=== PATIENT | female | born 1945 | race Caucasian/White ===

== ENCOUNTER 2020-07-04 04:40 | Inpatient (IN) | payer OTHER ==
[~2020-07-04] VITALS: Ht 162.6 cm; Wt 76.7 kg
--- NOTE | 2020-07-04 07:20 | NUR ---
Arrived on [facility] floor from [facility] via W/C on 07/04/20 @ 06:15 accompanied by x2 staff and security. Transferred to Bed 526A, VS 153/86 66 20 98 oF 95% height 5'4" weight 161.5 pounds. 96 hour hold completed.
[2020-07-04] MEDS ORDERED: LIPITOR 20 MG T20 M1 PO (07:21)
[2020-07-04] MEDS ORDERED: ASPIRIN EC81 M1 PO (07:21)
[2020-07-04] MEDS ORDERED: BUSPIRONE HCL7.5 MG PO (07:22)
[2020-07-04] MEDS ORDERED: ESCITALOPRA5 MG/5 ML PO (07:23)
[2020-07-04] MEDS ORDERED: LISINOPRIL20 MG PO (07:25)
[2020-07-04] MEDS ORDERED: LORAZEPAM 1 MG T1 MG PO (07:27)
[2020-07-04] MEDS ORDERED: METOPROLOL TART75 MG PO (07:38)
[2020-07-04] MEDS ORDERED: MACROBID 100 M100 MG PO ×2 (07:39→07:40)
[2020-07-04 10:00] VITALS: BP 153/86
--- NOTE | 2020-07-04 10:39 | NUR ---
Arrived on [facility] floor from [facility] via W/C on 07/04/20 @ 0615 accompanied by x2 staff and security. Transferred to Bed 526A VS 153/86 66 20 98 o F 95% height 5'4" weight 161.5 pounds. 96 hour hold completed.
--- NOTE | 2020-07-04 13:55 | NUR ---
0700 ASSUMED CARE OF PATIENT, PATIENT SITTING IN DAYROOM TALKING WITH OTHER WELL. PATIENT CALM AND COOPERATIVE. VS APON ARRIVAL AT 0610 153/86, 66, 20, 98.0, 95%. WT 161.5 LBS. HT 5'4". PATIENT ATTENDED GROUP THIS AM. MEDICATIONS TAKEN WHOLE WITHOUT DIFFICULTY. A & O X1 TO SELF. CONFUSED AND UNAWARE OF WHERE SHE IS. PATIENT ADMITED TO [facility] WITH INCREASED CONFUSION, WANDERING OFF FROM HOME, AND DIFFICULTY WITH REALITY. PATIENT PARANOID, BELIEVES SHE WAS TAKEN FROM HOME AND PUT IN SOMETHING TO BE KILLED. PATIENT STATES "I WAS IN MY ROOM THEN DRAG OUT BACK DOOR OF MY HOUSE AND LOCKED INTO SOMETHING". PATIENT SAYS WHEN SHE GETS SCARED OF HER SHE GOES TO THE NEIGHBORS BUT KNOWS HER WILL NOT HURT HER BECAUSE THEY LOVE EACH OTHER. PATIENT STATES "I KNOW I AM FORGETFUL, DEPRESSED AT TIMES, ANXIOUS AND PARANOID BUT DOES NOT KNOW WHY. NO C/O PAIN, SKIN INTACT, LS CLEAR, BS ACTIVE. WALKS WITH STEADY GAIT WITHOUT ASSISTANCE. WILL CONTINUE TO OBSERVE
[2020-07-04 19:28] VITALS: BP 130/60
--- NOTE | 2020-07-05 02:40 | NUR ---
PT CARE ASSUMED WITH PT IN THE DOCTOR'S OFFICE.PT WENT TO THE ACTIVITY AND SAT WITH OTHERS .PT TAKES MEDICATION WHOLE WITH NO ISSUES.PT WANTS TO COME VISIT HER OR SHE GO SEE THE .STAFF EXPLAINED TO PT SHE WILL NOT BE ABLE TO GO SEE TONIGHT.PT WALKED UP AND NOW THE HALLWAY AND REMAIN IN THE ACTIVITY ROOM TILL THIS TIME .PT IS STEADY GAIT.WILL CONTINUE TO MONITOR
[2020-07-05 07:57] VITALS: BP 172/96
--- NOTE | 2020-07-05 08:48 | H ---
[facility] [place] [address] HISTORY AND PHYSICAL Name: GIULIA MONTIEL Room #: 526A-A ADM IN M.R.#: [id number] Admission: 07/04/20 Attend Phys: Mira Cardoso DO Discharge: Date of : 47 Report #: [id number] THIS REPORT FOR: cc: Jacob Kent MD, Richard K. MD Kerstein, Andrew H. DO ~ DOC #: [id number] MIRA Cardoso DO DATE OF SERVICE: 07/04/2020 INPATIENT PSYCHIATRIC EVALUATION ATTENDING PSYCHIATRIST: Mira Cardoso DO. DEOILING MACHINE OPERATOR: Mira Metz MD. REASON FOR ADMISSION: The patient sent over for worsening dementia, attempting to elope from her , worried that her was trying to kill her. SOURCE OF INFORMATION: Interview with the patient; telephone conversation with her daughter, Gisele; documentation from [email or web address] [place] system. HISTORY OF PRESENT ILLNESS: This is a 75-year-old female, to her . They have been around 40 years it sounds like. Apparently, the patient has had worsening paranoia. There is some concern of dementia diagnosis, but according to the daughter, has not been formally diagnosed at [facility]. She denied chest pain, shortness of breath, abdominal pain, vomiting or fever. Limited psychosocial history. She was a high school youth care worker, retiring around 10 years ago. PAST MEDICAL HISTORY: Includes atrial fibrillation, essential hypertension, hyperlipidemia, history of an NSTEMI, prediabetes, tachycardia. PSYCHIATRIC HISTORY: Anxiety and psychosis. PAST SURGICAL HISTORY: Includes cardiac catheterization, very mild 20% focal mid LCX, 30% ostial dominant RCA. She has also had hysterectomy. FAMILY HISTORY: Ovarian cancer in her mother, hypertension in her father. SOCIAL HISTORY: Nonsmoker, 1.0 standard drinks alcohol per week basis described as a glass of wine. REVIEW OF SYSTEMS: From the ER: CONSTITUTIONAL: Negative for diaphoresis and fever. HEENT: Negative for congestions. [facility] [address] [place] [address] HISTORY AND PHYSICAL Name: GIULIA MONTIEL Kendal Room #: 526A-A ADM IN ..#: [id number] Admission: 07/04/20 Attend Phys: Mira Cardoso DO Discharge: Date of : 47 Report #: [id number] EYES: Negative for visual disturbance. RESPIRATORY: Negative for cough. CARDIOVASCULAR: Negative for chest pain. GASTROINTESTINAL: Negative for abdominal pain, diarrhea, nausea, vomiting. GENITOURINARY: Negative for dysuria, hematuria. MUSCULOSKELETAL: Negative for back pain and neck pain. SKIN: Negative for color change, pallor, rash, and wound. NEUROLOGIC: Negative for seizure, syncope, speech difficulty and weakness. PSYCHIATRIC: Behavioral, positive for confusion. Negative for suicidal ideas. All other review of systems are negative. ADDITIONAL INFORMATION: Laboratories from the ER: White count 7.86, H and H 14.7 and 42, platelet count 283. Sodium was 139, potassium 3.9, chloride 104, bicarbonate 25, anion gap 10, calcium 9.2, glucose 122, total serum protein 8.0, albumin 4.7, alkaline phosphatase 95, ALT 23, AST 30, total bilirubin 1.0, blood urea nitrogen 14, creatinine 0.9, GFR female 61, troponin less than 0.01. Venous lactate 1.4. Alcohol less than 10, salicylate less than 1.1. Acetaminophen less than 10. UDS was positive for THC, benzodiazepines, otherwise not detected. CT of the head without contrast was reported by the radiologist to be negative for acute abnormality. Chest x-ray interpreted by ER physician shows normal heart size, normal lung volumes. No consolidation, effusion, pneumothorax. Normal soft tissues. She was seen by Dr. Gurpreet Potts at [facility] ER. There were 2 affidavits done by the patient. The first one done by Twan, which was the son-in-law. Apparently, the patient is constantly being "scared and anxious" for no reason, cannot remember the names and sometimes faces of close family members running away from home and her caregiver, tells strangers that her of 41 years is stranger and is keeping her prisoner in her home, lives atresidence that she has not lived in for 25-30 years. Cannot retain any new information known for years, constantly confused about her medication, forgets close family members and gets scared of them, refuses to use the restroom, paranoidabout taking medicines, refuses to take it. forgettingabout phone numbers, writes them down dozens of times and forgets she has them. Additional affidavit done by Katty Carreno, I believe this is her of 40 years, forgetting who she is, forgetting her of 41 years, forgetting her daughter of 40+ years, forgetting her son-in-law of 30 years, forgetting where she is, confused of current home with one of her previous residence, randomly leaves, runs away from home, walk to police station in the rain in her [employer] bottoms, 2 different slippers, also sneaks into the stranger's houses. She says she has been held against her will and to call the police, constantly scared, urinates in closets and trash cans, very combative about taking medications. She jumped out of a moving vehicle to walk to her daughter's house. All above from from the 2 affidavits I have. [facility] [address] [place] [address] HISTORY AND PHYSICAL Name: GIULIA MONTIEL Room #: 526A-A ADM IN M.R.#: [id number] Admission: 07/04/20 Attend Phys: Mira Cardoso DO Discharge: Date of : 47 Report #: [id number] Laboratory work has already been reviewed. Have limited home medication list: Aspirin 81 mg daily, taken at home; atorvastatin 20 mg daily; buspirone 7.5 mg oral twice per day; escitalopram 120 mg strength, 1 tablet p.o. daily; lisinopril 40 mg p.o. daily; 1 mg q. 8 hours p.r.n. anxiety, metoprolol tartrate 75 mg twice per day; Macrobid, but she allegegdly completed treatment. PRIMARY CARE PHYSICIAN: Dr. Jacob Kent at [facility]. I do not have the VAC assessment for some reason that [facility] usually does. PHYSICAL EXAMINATION: MUSCULOSKELETAL EXAMINATION: Normal gait and station. Wearing blue paper scrub suit. GENERAL: Well-developed female who appeared younger than stated age. BMI 27.7, weight 73.255 kilos. Attention limited. Concentration limited. Speech normal rate, volume, and tone. Thought process: Linear and goal directed. Thought content: focused on returning to her home Mood and affect congruent, fairly euthymic. Denied SI, HI. Denied auditory, visual, or tactile hallucinations. formally tested with SLUMS- quite impaired total score was 8/30 . Insight limited. Judgment impaired. Fund of knowledge greater than average. FORMULATION: This is a 75-year-old female transferred from [facility]. She is under a 96-hour hold for psychosis and alleged dementia. DIAGNOSES: Unspecified psychosis, rule out major neurocognitive disorder, unspecified with behavioral disturbance. Chronic comorbidities include hypertension, history of cardiovascular disease. PLAN: Admitted to Geriatric Psychiatry Unit, on [place] 96 hour hold . Evaluate, stabilize. Obtain collateral. Regarding her medications in the hospital, we will continue atorvastatin 20 mg daily, nitrofurantoin 100 mg p.o. b.i.d. for now as it is unclear, which she was taking at home for UTI, metoprolol tartrate 75 mg p.o. b.i.d., lisinopril 40 mg p.o. daily, Lexapro 20 mg oral daily, aspirin 81 mg oral daily. Otherwise, house PRNs. We will do B12, syphilis antibody, vitamin D. I do not think she has clear risk factors for HIV, but that may be considered and estimated length of stay is 10-14 days. I did speak with her daughter, would like to get a family meeting with her early next week. We will have lack of DPOA as decision as an issue with this case. [facility] [address] [place] [address] HISTORY AND PHYSICAL Name: GIULIA MONTIEL Room #: 526A-A ADM IN ..#: [id number] Admission: 07/04/20 Attend Phys: Mira Cardoso, Discharge: Date of : 47 Report #: [id number] STRENGTHS: She is insured. Supportive family. WEAKNESSES: No DPOA. Some cardiovascular conditions. Time spent on this case is greater than 60 minutes, greater than 50% of the time spent in review of records, coordination of care. DO BEBETO Quintana/MEGHA/ALHAJI <ELECTRONICALLY SIGNED> By: Mira Cardoso DO 07/05/20 0848 [id number] Mira Cardoso DO /nt
--- NOTE | 2020-07-05 11:36 | NUR ---
0700 ASSUMED CARE OF PATIENT, PATIENT IN DAYROOM AT THAT TIME. PATIENT TO NURSES STATION ASKING FOR PHONE TO CALL SHE IS AFFRAID THAT WE ARE GOING TO KILL HER. MARK[employer]ING [employer] SAT WITH PATIENT AND TALKED, PATIENT REORIENTED TO PLACE AND ENVIROMENT. PATIENT CONFUSED AND ASKING TO LEAVE. CONTINUES TO ASK WHAT WE ARE GOING TO DO WITH HER AND IF WE WILL HURT HER. PATIENT HAS HAD 0 HRS OF SLEEP AND FEARS GOING TO BED FOR FEAR OF BEING HURT. PATIENT WAS REASSURED THAT SHE IS SAFE HERE AND NO ONE WILL HURT HER. PATIENT REFUSED HER BREAKFAST THIS AM. PATIENT FALLS ASLEEP IN AIDEN CHAIR IN DAYROOM X 1 HR PRIOR TO ARRIVING FOR VISITATION. PATIENT CALM WITH IN DAYROOM AT THIS TIME.
[2020-07-05 19:38] VITALS: BP 145/66
[2020-07-06 01:00] VITALS: BP 145/66
--- NOTE | 2020-07-06 04:20 | NUR ---
Assumed care on 07/05/20 @ 19:15, in the day room ambulating and going into room, then returning to day room. Denies HI/SI, denies AH/VH. can give the current president, and the date but not the month, or the hospital. A&Ox3. Compliant with medications, taking meds whole with water. Retired to bed @ HS. Will continue to monitor for safety and comfort as per unit protocol.
[2020-07-06 09:36] VITALS: BP 122/72
--- NOTE | 2020-07-06 09:39 | NUR ---
Assess due to admit to [facility] with acute psychosis, paranoia. Hx prediabetes, HTN, NSTEMI. BG well controlled. Wt hx unknown, current BMI 27. On carb control diet order, no diabetic meds. Eating 100% of 2 of 3 meals so far. B12 levels are low, recommend supplementation. Otherwise low nutrition risk.
--- NOTE | 2020-07-06 12:25 | NUR ---
THANIA contacted Jennifer and scheduled a family meeting for pt on Thursday07/09/2020 @6220. She said Abiel, Jennifer, and William will be in attendance. SW team will continue to follow pt during her stay on this unit.
[2020-07-06 12:27] VITALS: BP 122/72
--- NOTE | 2020-07-06 12:49 | NUR ---
ASSUMED CARE AT 0700 TODAY. PT. IS A&OX1. SHE HAS ASKED IF SHE IS GOING TO BE KILLED WHILE SHE IS HERE. SHE TOOK HER MEDICATIONS WITHOUT PROBLEMS THIS MORNING, BUT ASKED IF THAT WAS THE POISON FOR HER. STAFF TRIED TO REASSURE HER THIS WOULD NOT HAPPEN HERE. SHE HAS DENIED SI/HI OR AVH. SHE TENDS TO BE EXIT SEEKING AT TIMES. NO NEW PROBLEMS NOTED OR VOICED THIS MORNING. WILL CONTINUE TO MONITOR.
[2020-07-06 19:38] VITALS: BP 142/75
[2020-07-06 21:05] LABS: SYPHILIS AB Non Reactive (Non Reactive)
[2020-07-07 00:44] VITALS: BP 142/75
--- NOTE | 2020-07-07 06:20 | NUR ---
07-06-20 1900 SEATED IN THE DAYROOM SOCIALIZING WITH PEERS AT A TABLE. ASSISTED HER WITH CLARIFYING HER 'S PHONE NUMBER AND CALLING HIM. A&OX2 CONFUSION NOTED REGARDING PLACE AND PURPOSE OF HOSPITALIZATION. DENIES SI/HI DENIES A/H AND V/H. REPORTS HAD A BM YESTERDAY HRRR, LUNGS CTA BILAT, ABD N X 4Q. DAILEY SCALE OF 30. SLEPT IN BED VERY LITTLE, SPENT MUCH OF THE NIGHT IN THE DAY ROOM. PARANOID IDEATION REGARDING MEDICATION, REPEATED EACH MEDICATION SEVERAL TIMES FOR HER.
[2020-07-07 09:26] VITALS: BP 94/32
[2020-07-07 09:48] VITALS: BP 125/62
--- NOTE | 2020-07-07 11:59 | NUR ---
1200 RESUMMED CARE FROM OVERNIGHT SHIFT THIS AM, PATIENT IN DAY ROOM SITTING QUIET. PATIENT ATE BREAKFAST TOOK MEDICATIOM WITHOUT INCDENCE; PATIENT ALERT ORIENTED TIMES 2. PATIENT HAS SOME FORGETFULNESS PATIENT CALM COOPERATIVE. PATIENT DENIES SI/HI/AH/VH AT PRESENT. PATIENTS ABDOMEN SOFT BOWEL SOUNDS PRESENT. PATIENTS LUNGS CLEAR PATIENT PARTICIPATES IN GROUPS PATIENTS CAME TO VISIT. WILL CONTINUE TO MONITOR PATIENT FOR SAFETY AND BEHAVIORS.
[2020-07-07 19:57] VITALS: BP 179/91
--- NOTE | 2020-07-08 00:43 | NUR ---
PT SITTING QUIETLY IN DAYROOM UPON INITAL ASSESSMENT THIS PM. ANXIOUS FACIAL EXPRESSION-WATCHING STAFF AND PEERS KYRA-DENIES COMPLAINTS DURING PM ASSESSMENT BUT RESPONSES ARE VAGUE/BRIEF. RESTLESS PACING IN HALLWAY-NO NOTED INTERACTION WITH PEERS-SITS AWAY FROM OTHERS IN DAYROOM. DID TAKE HS MEDICATIONS WITHOUT RESISTANCE-ASSISTED TO CALL GILL AND TO BED SHORTLY AFTER THIS PHONE CONVERSATION.
[2020-07-08 10:03] VITALS: BP 108/65
--- NOTE | 2020-07-08 18:44 | NUR ---
0700 ASSUMED CARE OF PATIENT, PATIENT IN BED AT THAT TIME. AMB WITH STEADY GAIT. NO C/O PAIN, DENIES SI/HI. LS CLEAR, BS ACTIVE. PATIENT ASKS IF IS COMING TO VISIT. BLOOD SUGAR 102 THIS AM. PATIENT CALM AND COOPERATIVE. VS STABLE. DENIES OTHER NEEDS VISITS X 2 TODAY
[2020-07-08 18:56] VITALS: BP 152/93
[2020-07-08 21:00] VITALS: BP 152/93
--- NOTE | 2020-07-09 00:56 | NUR ---
PATIENT SAT OUT IN DINING ROOM THIS EVENING BEFORE BED. AT FIRST OF SHIFT SHE SAT OFF IN A CORNER BY HERSELF AND OBSERVED OTHERS. WHEN I INTRODUCED MYSELF SHE STATED THAT SHE FELT NERVOUS. HER HEART RATE WAS UP 120-130. SHE WAS WANTING TO GO HOME WITH HER . WITHIN AN HOUR OF THAT TIME SHE MOVED TO A TABLE WITH A GROUP OF WOMEN AND VISITED WITH THEM AND AT AN HS SNACK. SHE RELAXED AND WAS CALM AND SMILING AND PLEASANT. SHE DENIES PAIN/SI/HI/AVH. SHE AMBULATES WITH A STEADY GAIT. SHE IS STILL WISHING TO GO HOME SOOM AND STATES SHE FEELS SHE IS READY TO GO HOME AND FEELS SHE IS DOING BETTER. PATIENT TOOK HER MEDS WHOLE WITH WATER. PATIENT WENT TO BED LATER AND HAS BEEN RESTING /SLEEPING IN BED SO FAR. BED IN LOW POSITION. ROUTINE ROUNDS TO ASSESS SAFETY AND STATUS OF PATIENT.
[2020-07-09 09:29] VITALS: BP 170/87
--- NOTE | 2020-07-09 18:34 | NUR ---
0700 ASSUMED CARE OF PATIENT, PATIENT IN ROOM AT THAT TIME. PATIENT AMB WITH STEADY GAIT. MEDICATIONS TAKEN WHOLE. VS 170/87, 84, 18, 97.0, 95%. NO C/O PAIN, LS CLEAR, BS ACTIVE. DENIES SI/HI. PATIENT HAD VISITORS TODAY. CALM AND COOPERATIVE.
[2020-07-09 20:07] VITALS: BP 194/94
[2020-07-09 23:16] VITALS: BP 129/55
--- NOTE | 2020-07-10 02:59 | NUR ---
PATIENT WAS UP IN DINING ROOM THIS EVENING. SHE ASKED TO USE THE PHONE TO CALL HER . SHE STATES THEY HAD A NICE VISIT AND SHE STATES SHE LOVES THAT MAN SO MUCH. SHE DID ASK HOW HER BP WAS DOING. EXPLAINED TO HER THAT IT WAS HIGH THIS EVENING BEFORE HS MEDS AT 194/94. WENT OVER HER HS MEDS WITH HER AND AND VISITED WITH HER FOR A BIT WHICH SEEMED TO HELP HER RELAX. SHE LIKED TALKING ABOUT HER CATS. PATIENT TOOK MEDS WHOLE AND WITH WATER. SHE HAD HS SNACK. SHE IS A/0X2-3. RECHECKED BP AFTER 2 HOURS AND BP DOWN TO 129/55. SHE WENT TO BED BY 2200. SHE AMBULATES WITH A STEADY GAIT. DENIES PAIN, SI/HI/AVH. PLEASANT AND COOPERATIVE. APPEARS NEEDY AT TIMES AND UNSURE OF HER ABILITIES. SHE IS EAGER TO BE HOME WITH HER AND CATS. ROUTINE ROUNDS TO ASSESS SAFETY AND STATUS OF PATIENT. CONTINUING TO MONITOR.
[2020-07-10 09:07] VITALS: BP 182/76
[2020-07-10 09:30] VITALS: BP 145/86
--- NOTE | 2020-07-10 09:49 | NUR ---
THANIA attended a family meeting with pt, Dr. Cardoso, her daughter and son-in-law, her . Discharge plans were discussed. Her family would like her to go home with 24 hour care and supervision. THANIA provided education on caregiver burnout and suggested seeking respite care so that the family can have a break. Dr. Cardoso suggested an adult day program. The family said okay, but did not ask for recommendations of either. Their plan is for pt to reside with and he care for pt, and when he is tired he will have her son and law care for her as he does not work often. The family and Dr. Cardoso agreed upon a discharge of 10pm. SW team will continue to follow pt during her stay on this unit. THANIA team will continue to follow pt during her stay on this unit.
[2020-07-10 12:17] VITALS: BP 182/76
--- NOTE | 2020-07-10 17:31 | NUR ---
0700 ASSUMED CARE OF PATIENT, PATIENT IN BED AT THAT TIME. PATIENT AMB WITH STEADY GAIT. PATIENT CALM AND COOPERATIVE, DENIES SI/HI. NO C/O PAIN. BS ACTIVE, LS CLEAR. DENIES DEPRESSION OR ANXIETY. SPOUSE VISITED TWICE TODAY. PATIENT COMUNICATES WELL WITH OTHER, NO PARANOIA NOTED. WILL CONTINUE TO OBSERVE
[2020-07-10 19:45] VITALS: BP 142/83
--- NOTE | 2020-07-11 04:47 | NUR ---
Assumed care on 07/10/20 @ 19:15, calm, pleasant affect noted. A&Ox2, confusion noted. Cooperates with assessment, HRRR, Lung sounds CTA bilat, ABD sounds noted Q4 over a round abdomen. Last recorded BM 07/07, pt unable to recall. Denies SI/HI Denies AH/VH. Socializes with peers, at HS goes to the bedroom, gets ready for bed then returns to the day room, sleeping in pedro chair. Maik scale of 30, pt noted to ambulate with a steady gait. Will continue to monitor as per unit protocol for safety and comfort.
[2020-07-11 08:00] VITALS: BP 165/95
--- NOTE | 2020-07-11 10:24 | NUR ---
PATIENT CARE ASSUMED AT 0700 - PATIENT IN DINING STARKEY WHEN APPROACHED. AFFECT PLEASANT AND MOOD CALM AND AGREEABLE. CONFUSED BUT EASILY REDIRECTED. QUESTIONED WHEN SHE WAS DISCHARGING. WAS VERY PLEASED TO HEAR GOING HOME TOMORROW. STATED SLEPT WELL - NO PAIN WHEN ASSESSED. COMPLIANT WITH MEDICATIONS - APPETITE GOOD - COMPLETION OF 75 PERCENT OF HER BREAKFAST. SKIN INTACT, HEART RATE STRONG AND STEADY AND L UNGS CLEAR ON ASUCULTATION. AMBULATES READILY INDEPENDENTLY - STEADY ON HER FEET. PARTICIPATED IN GROUP ACITIVITY - ENGAGES IN MILIEU AND SOCIAL WITH PEERS.
[2020-07-11 19:34] VITALS: BP 126/66
[2020-07-11 23:32] VITALS: BP 126/66
--- NOTE | 2020-07-11 23:38 | NUR ---
Assumed care on 07/11/20 @ 19:15, in her room, lying in bed. A&Ox3, unable to give President's name. HRRR, Lungs CTA bilat, ABD N x 4Q with a bm reported today. Denies pain. Reports anxiety and a worried feeling that comes and goes. Denies SI/HI, AH/VH Denies depression. Pt reports that she is looking forward to discharging with her family tomorrow. Takes meds whole with water. Compliant with administration.
[2020-07-12 07:31] VITALS: BP 146/64
--- NOTE | 2020-07-12 08:45 | NUR ---
Nutrition f/u: Recent intake 100% most meals. No wt loss from admit at 161 lb. BG 100-103, controlled. Meds reviewed. Per chart, pt may discharge soon. Continues at low nutrition risk.
[2020-07-12 08:48] VITALS: BP 146/64
--- NOTE | 2020-07-12 09:04 | NUR ---
THANIA D/C Note THANIA contacted pt's PCP Dr. Kent office and scheduled an appt for July 17, 2020 @6790; this is an in-person appt. THANIA will fax pt's discharge docs to [phone]. THANIA gave pt a copy of a D/C handout with this appt and also a copy to her nurse to put in her take home packet.
[2020-07-12] MEDS ORDERED: LOPRESSOR50 PO (09:38)
[2020-07-12] MEDS ORDERED: LIPITOR 20 MG T20 M1 PO (09:39)
[2020-07-12] MEDS ORDERED: BENAZEPRIL HCL40 MG PO (09:40)
[2020-07-12] MEDS ORDERED: LEXAPRO 10 MG T10 MG PO (09:41)
[2020-07-12] MEDS ORDERED: RISPERDAL2 MG PO (09:41)
--- NOTE | 2020-07-12 16:12 | NUR ---
0700 ASSUMED CARE OF PATIENT, PATIENT IN DAYROOM AT THAT TIME. PATIENT AMB WITH STEADY GAIT. CALM AND COOPERATIVE. ASKS INTERNET MARKETING EXECUTIVE WHAT TIME SHE GETS TO GO HOME, INTERNET MARKETING EXECUTIVE EXPLAINED TO HER ABOUT 10AM. PATIENT TO DAYROOM FOR BREAKFAST. MEDICATION TAKEN WHOLE WITHOUT DIFFICULTY. PATIENT AGAIN ASKS WHAT TIME SHE LEAVES, PATIENT CONFUSED AND FORGETFUL. PATIENT TO ROOM TO CHANGE INTO HER OWN CLOTHES FOR DC. SPOUSE ARRIVES AND SENT TO OUT PT PHARMACY FOR MEDICATION FOR PATIENT. SPOUSE RETURNS, SPOUSE TO DAYROOM AND SITS WITH INTERNET MARKETING EXECUTIVE AND PATIENT. DC INSTRUCTIONS GIVEN TO BOTH PATIENT AND SPOUSE, QUESTIONS ANSWERED. PATIENT DC AT 1040 WITH BELONGINGS IN HAND. ACCOMPANIED BY STAFF TO VEHICLE. PATIENT AMB TO VEHICLE.
--- NOTE | 2020-07-13 07:55 | D ---
[facility] [place] [address] DISCHARGE SUMMARY Name: GIULIA MONTIEL Room #: 526A-A [facility] [place] .R.#: [id number] Admission: 07/04/20 Attend Phys: Mira Cardoso DO Discharge: 07/12/20 Date of : 47 Report #: [id number] THIS REPORT FOR: cc: Jacob Kent MD, Richard K. MD Kerstein, Andrew H. DO ~ DOC #: [id number] MIRA Cardoso DO DATE OF SERVICE: 07/12/2020 INPATIENT PSYCHIATRIC DISCHARGE SUMMARY ATTENDING PSYCHIATRIST: Mira Cardoso DO QUALITY CONTROL OPERATOR: Mira Metz M.D. PRIMARY CARE PHYSICIAN: Dr. Kent. DISCHARGE DIAGNOSES: Major neurocognitive disorder, likely due to Alzheimer's disease with behavioral disturbance, improved. ADDITIONAL DIAGNOSIS: Unspecified depression. MEDICAL DIAGNOSES: Include hypertension, history of a non-ST elevation myocardial infarction, and prediabetes. The patient is being discharged to her home, 24 x 7 care and supervision is recommended. She lives with her , Abiel; her daughter, Gisele; son-in-law, William; and her support persons. The patient's aftercare is as follows Dr. Kent is a Primary Care Physician, appointment scheduled on 07/17/2020 at [address] Kent is going to prescribe antipsychotic for now; however, establishment at [facility] was recommended. DISCHARGE MEDICATIONS: Aspirin 81 mg oral daily for heart protection, atorvastatin 20 mg oral daily for hyperlipidemia, metoprolol tartrate 75 mg oral twice daily for hypertension, benazepril 40 mg oral daily for hypertension, Lexapro 10 mg oral daily for depression, risperidone 2 mg oral daily for mood stabilization, psychosis and impulse control. The patient was given crisis hotline information and significant laboratories this admission, B12 level was low at 227. Vitamin D normal at 35.2. TSH normal at 1.135. I would recommend B12 supplementation 1000 mcg oral daily. REASON FOR ADMISSION: A 75-year-old female who was sent over for attempting to elope from her , worried that her was trying to kill her, initially seen in [facility] system. [address] [address] DISCHARGE SUMMARY Name: GIULIA MONTIEL Room #: 526A-A [facility]#: [id number] Admission: 07/04/20 Attend Phys: Mira Cardoso DO Discharge: 07/12/20 Date of : 47 Report #: [id number] HOSPITAL COURSE: The patient was admitted to Geriatric Psychiatry Unit. She had a low SLUMS score, I believe it was in the 8-10 range. We were able to get her paranoia under control with risperidone. We had a family meeting with her daughter, son-in-law, . Memory care placement was recommended; however, the family did not want to do this at this time and wanted to provide 24-hour care at home. On the day of discharge, the patient was not suicidal or homicidal, felt to be in stable condition. PHYSICAL EXAMINATION: VITAL SIGNS: Today, temperature 35.8, pulse 88, respirations 18, BP 146/64, O2 sat 95%. MUSCULOSKELETAL: Normal gait and station. MENTAL STATUS EXAM: This is a well-developed, slightly unkempt female appearing at least stated age. Attention fair. Concentration limited. Speech, somewhat monotone, normal rate. Thought process: Linear and goal directed. Thought content relative poverty of thought. No psychomotor agitation. Slight psychomotor retardation. Denied SI, HI. Denied auditory, visual, tactile hallucination. Denied helplessness. Denied hopelessness. Mood and affect were congruent, constricted. Insight limited. Judgment limited. Fund of knowledge, no greater than average. Prognosis for this patient is guarded given her age of 75 having a neurodegenerative disorder. DO BEBETO Quintana/MORGAN/JOE <ELECTRONICALLY SIGNED> By: Mira Cardoso DO 07/13/20 [id number] Mira Cardoso DO /nt
== END 2020-07-12 10:40 | disposition home or self-care (01) | DRG 57 ==
LOC: SBH
PROVIDERS: ADMIT Psychiatry & Neurology Psychiatry; ATTEND Psychiatry & Neurology Psychiatry
DX: G30.9 Alzheimer's disease, unspecified (principal); F02.81 Dementia in other diseases classified elsewhere, unspecified severity, with behavioral disturbance; F01.51 Vascular dementia, unspecified severity, with behavioral disturbance; I10 Essential (primary) hypertension; F32.9 Major depressive disorder, single episode, unspecified; R73.03 Prediabetes; E78.5 Hyperlipidemia, unspecified; I48.91 Unspecified atrial fibrillation; F41.9 Anxiety disorder, unspecified; F22 Delusional disorders; I25.2 Old myocardial infarction
CPT/HCPCS: 10880

== ENCOUNTER 2020-07-04 05:21 | Emergency (ER) | payer OTHER ==
[~2020-07-04] VITALS: Ht 162.6 cm; Wt 81.7 kg
[2020-07-04 05:24] VITALS: BP 192/78
[2020-07-04] MEDS ORDERED: ASPIRIN EC81 M1 PO (07:21)
[2020-07-04] MEDS ORDERED: LIPITOR 20 MG T20 M1 PO (07:21)
[2020-07-04] MEDS ORDERED: BUSPIRONE HCL7.5 MG PO (07:22)
[2020-07-04] MEDS ORDERED: ESCITALOPRA5 MG/5 ML PO (07:23)
[2020-07-04] MEDS ORDERED: LISINOPRIL20 MG PO (07:25)
[2020-07-04] MEDS ORDERED: LORAZEPAM 1 MG T1 MG PO (07:27)
[2020-07-04] MEDS ORDERED: METOPROLOL TART75 MG PO (07:38)
[2020-07-04] MEDS ORDERED: MACROBID 100 M100 MG PO ×2 (07:39→07:40)
== END 2020-07-04 06:10 ==
LOC: ER 05:21
DX: F03.90 Unspecified dementia, unspecified severity, without behavioral disturbance, psychotic disturbance, mood disturbance, and anxiety (principal); Z20.822 Contact with and (suspected) exposure to COVID-19; F22 Delusional disorders; I48.91 Unspecified atrial fibrillation; F41.9 Anxiety disorder, unspecified; I10 Essential (primary) hypertension